=== PATIENT | male | born 1950 ===

== ENCOUNTER 2024-09-08 09:43 | Outpatient (AMB) | payer OTHER, SELFPAY ==
--- NOTE | 2024-09-08 09:44 | MHC.OFFVIS ---
Vital Signs 09/08/24 09:49 Height 5 ft 10 in Weight 161 lb BMI 23.1 BP 158/78 H Blood Pressure Location Lt brachial Position Sitting Pulse 59 Pulse Source Pulse Oximeter Pulse Oximetry (%) 97 Oxygen Delivery Method Room Air Intake Visit Reasons: Shingles Pain JULY 04/13/22 Intake Note: Pain today 12/25 Compensation Associate Required: No Accompanied by: Family/Other Allergies No Known Allergies Allergy (Verified 09/08/24 09:50) HPI Comments Details: Rogerio is back in my office after 3 years of absence. He reported post herpetic neuralgia in July,. Topical medications were offered to the patient. Capsaicin OTC and capsaicin Qutenza were discussed. Unfortunately patient was lost for the follow-up. Now he presents in my office with complains on continuous post herpetic neuralgia. His scar from the previous arriaga are distributed in the projection of approximately right 6th rib, however more precise location could be established under fluoroscopy examination. I offered him diagnostic right 6 rib intercostal injection to establish on whether or not his condition is related to intercostal 6 nerve. Possibility of treating this condition with sprint PNS versus cure on X PNS was briefly discussed with the patient. Prior: very pleasant [place]ian-speaking 71 years old gentleman who presents in my office with complains on post herpetic neuralgia. In July of 2021 he developed shingles. He received medication to treat his shingles. His daughter who is today with him stated that the medication probably was valacyclovir. He did not receive any epidural steroid injections. After the acute vesicle nickie completed the patient complained on continuation of the pain. There is still some rash but not physical or formation in the projection of his right approximately T5-T6 thoracic nerve roots. He tried gabapentin at maximal doses. Gabapentin helped his pain minimally. He tried lidocaine patch which helped his pain minimally. [facility] Medical History (Updated 04/13/22 @ 10:20 by Ciaran Marroquin MD) Lumbago Pure hypercholesterolemia Sleep apnea Postherpetic neuralgia Review of Systems Const All systems reviewed & are unremarkable except as noted in HPI and below ENT Reports Normal hearing present Neuro Reports Normal hearing present, Denies Abnormal speech present, Denies confusion and Denies Sensory deficit (Neuro) Psych Denies confusion Physical Exam Vital Signs: Last Vital Signs Pulse 59 09/08/24 09:49 BP 158/78 H 09/08/24 09:49 Pulse Ox 97 09/08/24 09:49 Oxygen Delivery Method Room Air 09/08/24 09:49 BMI result Body Mass Index 23.1 Const General: no acute distress; No confusion Nutritional Appearance: obese morbidly obese Orientation/consciousness: patient oriented x3 and No confusion Eyes General: appearance normal, both eyes and all related structures Pupils: Equal, round and reactive pupils present EOM: EOMs intact bilaterally Neck Neck: Yes full ROM Chest Chest palpation & inspection: normal inspection of the chest Resp Effort & Inspection: normal respiratory effort, able to speak in complete sentences, normal respiratory pattern, no audible wheezes and no cough Cardio Jugular venous distension: no JVD GI Inspection: Yes normal to inspection Back/Spine/Pelvis Other: On inspection there is a typical post shingles rash in the projection of the right approximately T5-T6 nerve roots. The rash spreads from the back to the flank and the anterior surface of the chest. Neuro General: patient oriented x3, gait normal and No confusion Cranial nerves: Yes CN's II-XII intact bilaterally, Yes Equal, round and reactive pupils present, Yes Normal hearing present and Yes Ability to bilaterally elevate shoulders present Speech: No Abnormal speech present Gait exam (Neuro): Normal gait present Motor exam (neuro): 5/5 motor strength present throughout Sensory Exam: No Sensory deficit (Neuro) Extrem General: No pedal edema Psych Speech and movement: Normal speech and movement present Affect: normal affect Attitude: cooperative Thought process: Normal thought process present Thought content: Normal thought content present Insight: Good insight present (Psych) Judgement: Good judgement present (Psych) Assessment & Plan Assessment & Plan (1) Post herpetic neuralgia: Code(s): B02.29 - Other postherpetic nervous system involvement Category: Medical Plan: The patient is suffering from post herpetic neuralgia . He was lost for the follow-up for 3 years. Now he would like to receive the injections for his condition. I offered him diagnostic intercostal rib 6 injection to establish the source of his pain. Sprint PNS versus cure on X PNS were briefly discussed with the patient. Risks and benefits of the procedure were carefully explained to the patient. The patient had multiple questions. All of them were answered to his satisfaction. Plan I here by testify that I spent 35 minutes in conversation with this patient as well as planning his care and organizing this note. Coding Level of Care Code Est Pt Level 4 (49815) Diagnoses Post herpetic neuralgia B02.29
[2024-09-08 09:49] VITALS: BP 158/78; PULSE 59; O2SAT 97; BMI 23.1
== END 2024-09-08 10:14 | disposition home or self-care (01) ==
LOC: HO.PMC 09:44
PROVIDERS: PCP Pediatrics; Visit Provider Anesthesiology
DX: B02.29 Other postherpetic nervous system involvement (principal)
CPT/HCPCS: 99214

== ENCOUNTER → 2024-09-08 09:43 | Outpatient (BNVA) | payer OTHER, SELFPAY | PROVIDERS: PCP Pediatrics; Visit Provider Anesthesiology ==

== ENCOUNTER 2024-10-28 06:14 | Outpatient (REF) | payer OTHER, SELFPAY ==
--- NOTE | ~2024-10-28 | FL_ITS ---
EXAMINATION: FL GUIDANCE ONLY HISTORY: B02.29 - Other postherpetic nervous system involvement COMPARISON: None available. TECHNIQUE: Fluoroscopy time: 0.4 minutes. Cumulative Dose: 1.23 mGy. DAP: 0.0213 mGym2 Images: 3. FINDINGS: Fluoroscopic spot films of the right chest demonstrate needles and contrast material in the inferior to multiple ribs. FL/FL guidance in treatment room IMPRESSION: Fluoroscopy during procedure. Please see procedure report for additional information. Electronically signed by: Ed Helms MD 10/28/2024 01:10 PM EDT
--- OUTSIDE RECORDS SUMMARY | 2024-10-28 06:17 | XMS_ITS | Clinical Summary ---
Author Organization [address] [facility] Address [address] [place] [address] Phone Care Team Providers Care Asset Protection Detective Name Role Phone Gifty Davis MD Primary Care Provider [phone] Allergies Active Allergy Reactions Criticality Noted Date Comments Gabapentin Medium 06/26/2022 Other Reaction(s): Rash/Dermatitis Medications gabapentin (NEURONTIN) 300 mg capsule Take 1 Capsule by mouth at bedtime. 4 Active triamcinolone (KENALOG) 0.1 % lotion Use topically to affected skin 2x daily for no longer than 2-3 weeks, then only on the weekends. 3 Active metFORMIN XR (GLUCOPHAGE-XR) 500 mg 24 hr tablet Take 2 tablets (1,000 mg total) by mouth 1 (one) time each day. Do not crush, chew, or split. 180 each 1 5 Active rosuvastatin (CRESTOR) 10 mg tablet Take 1 tablet (10 mg total) by mouth 1 (one) time each day. 90 each 1 5 Active omeprazole (PriLOSEC) [address] capsule Take 1 capsule (20 mg total) by mouth 1 (one) time each day. Do not crush or chew. 90 capsule 1 5 07/17/19 26 Active Active Problems Problem Noted Date Diagnosed Date Diabetes (CMS[facility] V24, CMS/[facility] V28) 06/14/2022 Overview (05/09/2024): HgbA1c 7% 05/2022 - Metformin 500mg daily initiated Blood glucose elevated 06/09/2022 Postherpetic neuralgia 08/10/2021 Cough 07/10/2017 Overview (05/09/2024): 07/05- ENT Dr. Urbina Chest pain 02/27/2017 Overview (05/09/2024): 03/04. Referral ETT. Pt refused to sched. Sleep apnea 08/30/2010 Pure hypercholesterolemia 01/01/2007 Lumbago 11/24/2006 Overview (05/09/2024): left sacrum, right sciatica Immunizations Name Administration Dates Next Due Influenza trivalent, 0.5mL (Fluad) 65yo and olde r 07/01/2024 Pneumococcal conjugate 20 va lent (Prevnar 20, PCV 20) 2mo and older 07/01/2024 Pneumococcal polysaccharide 23 valent (Pneumovax 23) 2yo and older 07/27/2022 Td, Unspecified 07/20/2000 Tdap Tetanus diptheria acell ular pertussis (Boostrix; Adacel) 7yo and older 11/30/2011 Zoster recombinant (Shingrix) 19yo and older ,12/05/2022 Surgical History Surgery Date Site/Laterality Comments APPENDECTOMY PROCEDURE: MO APPENDECTOMY NOSE SURGERY PROCEDURE: MO UNLISTED PROCEDURE NOSE COLONOSCOPY 05/20/08 PROCEDURE: MO COLONOSCOPY STOMA DX INCLUDING COLLJ SPEC SPX; COMMENT: Up to cecum, good preparation, normal colon exam Family History Medical History Relation Name Comments Hypertension Uncle 1 Relation Name Status Comments Uncle 1 Uncle 2 Social History Tobacco Use Types Packs/Day Years Used Date Smoking Tobacco: Never Smokeless Tobacco: Never Alcohol Use Standard Drinks/Week Comments Yes 0 (1 standard drink = 0.6 oz pur e alcohol) Sex and Gender Information Value Date Recorded Sex Assigned at Not on file Legal Sex Male 5:02 PM EST Gender Identity Not on file Sexual Orientation Not on file Obstetrics History Last Filed Vital Signs Vital Sign Reading Time Taken Comments Blood Pressure 138/61 07/01/2024 9:47 AM EST Pulse 62 07/01/2024 9:47 AM EST Temperature 36.7 ??C (98.1 ??F) 07/01/2024 9:47 AM ES T Respiratory Rate - - Oxygen Saturation - - Inhaled Oxygen Concentration - - Weight 73.5 kg (162 lb) 07/01/2024 9:47 AM EST Height 177.8 cm (5' 10 ) 07/01/2024 9:47 AM EST Body Mass Index 23.24 07/01/2024 9:47 AM EST Plan of Treatment Upcoming Encounters Date Type Department Care Team (Late st Contact Info) Description 12/31/2024 9:30 AM EDT Office Visit Adult [facility] [address] [place] [address] Gifty Davis MD [address] [place] [address] Health Maintenance Due Date Last Done Comments Diabetes: Annual Retina Eye Exam 1960 RSV Immunization Adult Patients (1 - Risk 60-74 years 1-dose series) 2010 DTaP,Tdap,and Td Vaccines (3 - Td or Tdap) 11/29/2021 11/30/2011, 07/20/2000 Depression Screening 05/17/2022 Falls Risk Assessment 05/17/2022 Hepatitis C Screening 05/17/2022 Social Influencers of Health Screening 05/17/2022 COVID-19 Vaccine ( season) 2024 12/06/2020, 11/08/2020 Diabetes: Blood Sugar Control Test (HGBA1C) 12/21/2024 06/23/2024, 12/19/2023, 12/19/2023 Diabetes: Annual Urine Albumin-Creatinine Ratio (uACR) 06/23/2025 06/23/2024, 12/19/2023 Diabetes: Annual GFR (Glomerular Filtration Rate) 06/23/2025 06/23/2024, 06/09/2022 Diabetes: Annual Foot Exam 07/02/2025 07/02/2024, Cholesterol Screening (Lipid Panel) 06/23/2029 06/23/2024, 12/19/2023, 12/19/2023 Colorectal Cancer Screening: Colonoscopy 05/02/2033 05/02/2023 Zoster Vaccines Completed 02/10/2023, 01/16, 12/05/2022, Additional history exists Influenza Vaccine Completed 07/01/2024 Pneumococcal Vaccine: 50+ Years Completed 07/01/2024, 07/27/2022 HIB Vaccines Aged Out No longer eligi ble based on patient's age to complete this topic HPV Vaccines Aged Out No longer eligi ble based on patient's age to complete this topic Hepatitis A Vaccines Aged Out No long er eligible based on patient's age to complete this topic Hepatitis B Vaccines Aged Out No long er eligible based on patient's age to complete this topic IPV Vaccines Aged Out No longer eligi ble based on patient's age to complete this topic MMR Vaccines Aged Out No longer eligi ble based on patient's age to complete this topic Meningococcal ACWY Vaccine Aged Out N o longer eligible based on patient's age to complete this topic Meningococcal B Vaccine Aged Out No l onger eligible based on patient's age to complete this topic RSV Immunization Patients Under 20 months Aged Out No longer eligible based on patient's age to complete this topic Varicella Vaccines Aged Out No longer eligible based on patient's age to complete this topic Procedures Procedure Name Priority Date/Time Associated Diagnosis Comments MICROALBUMIN CREATININE URINE RATIO Routine 06/23/2024 9:30 AM EST Type 2 diabetes mellitus ([facility]/HCC V24, [facility] V28) COMPREHENSIVE METABOLIC PANEL Routine 06/23/2024 9:30 AM EST Type 2 diabetes mellitus (CMS/HCC V24, [facility] V28) HEMOGLOBIN A1C Routine 06/23/2024 9:30 AM EST Type 2 diabetes mellitus (CMS/HCC V24, CMS/HCC V28) LIPID PANEL WITH REFLEX TO DIRECT LDL Routine 06/23/2024 9:30 AM EST Type 2 diabetes mellitus (CMS/HCC V24, CMS/HCC V28) DIABETES FOOT EXAM Routine 12/27/2023 COLONOSCOPY Routine 05/02/2023 from Last 3 Months or Most Recently Relevant to Health Maintenance Results * (ABNORMAL) Lipid panel with reflex to direct LDL (06/23/2024 9:30 AM EST) Cholesterol 242(H) 0 - 200 mg/dL LAB CHEMISTRY METHOD 06/23/2024 1:35 PM [facility] Triglycerides 79 0 - 150 mg/dL LAB CHEMISTRY METHOD 06/23/2024 1:35 PM [facility] HDL 48 >=40 mg/dL LAB CHEMISTRY METHOD 06/23/2024 1:35 PM [facility] LDL Calculated 178(H) 0 - 100 mg/dL LAB CHEMISTRY METHOD 06/23/2024 1:35 PM [facility] VLDL Cholesterol Gianfranco 15.8 mg/dL LAB CHEMISTRY METHOD 06/23/2024 1:35 PM [facility] Non HDL Chol. (LDL+VLDL) 194(H) <145 mg/dL LAB CHEMISTRY METHOD 06/23/2024 1:35 PM [facility] Chol/HDL Ratio 5.0(H) 0.0 - 4.4 LAB CHEMISTRY METHOD 06/23/2024 1:35 PM [facility] Blood Venous blood specimen / Unknown Venipuncture / Unknown 06/23/2024 9:30 AM EST 06/23/2024 9:30 AM EST C Matias Davis MD LAB BLOOD ORDERABLES Final Res ult [facility] [address] [place] [address], [place] [phone] * Microalbumin creatinine urine ratio (06/23/2024 9:30 AM EST) Creatinine, Urine 231.0 mg/dL LAB CHEMISTRY METHOD 06/23/2024 5:02 PM [facility] Microalb, Ur 16.6 0.0 - 29.0 mg/L LAB CHEMISTRY METHOD 06/23/2024 5:02 PM EST [facility] Microalb/Creat Ratio 7 <30 mg/g creat LAB CHEMISTRY METHOD 06/23/2024 5:02 PM EST [facility] Urine Urine specimen obtained by clean catch procedure / Unknown Non-blood Collection / Unknown 06/23/2024 9:30 AM EST 06/23/2024 9:30 AM EST Gifty Davis MD LAB URINE ORDERABLES Final Res ult Performing Organization Address [facility]/ZIP Co de Phone Number [facility] [address] [place] [address], [place] [phone] * (ABNORMAL) Hemoglobin A1c (06/23/2024 9:30 AM EST) Hemoglobin A1C 7.9(H) <6.5 % LAB CHEMISTRY METHOD 06/23/2024 1:49 PM [facility] Mean Bld Glu Estim. 180 mg/dL LAB CHEMISTRY METHOD 06/23/2024 1:49 PM [facility] Blood Venous blood specimen / Unknown Venipuncture / Unknown 06/23/2024 9:30 AM EST 06/23/2024 9:30 AM EST us Gifty Davis MD LAB BLOOD ORDERABLES Final Res ult Performing Organization Address City/[facility]/ZIP Co de Phone Number [facility] [address] [place] [address], [place] [phone] * (ABNORMAL) Comprehensive metabolic panel (06/23/2024 9:30 AM EST) Sodium 138 133 - 145 mmol/L LAB CHEMISTRY METHOD 06/23/2024 1:43 PM [facility] Potassium 4.1 3.5 - 5.5 mmol/L LAB CHEMISTRY METHOD 06/23/2024 1:43 PM [facility] Chloride 105 96 - 110 mmol/L LAB CHEMISTRY METHOD 06/23/2024 1:43 PM [facility] CO2 27 21 - 32 mmol/L LAB CHEMISTRY METHOD 06/23/2024 1:43 PM [facility] Anion Gap 6 3 - 11 LAB CHEMISTRY METHOD 06/23/2024 1:43 PM [facility] Glucose 172(H) 70 - 100 mg/dL LAB CHEMISTRY METHOD 06/23/2024 1:43 PM [facility] BUN 25 5 - 25 mg/dL LAB CHEMISTRY METHOD 06/23/2024 1:43 PM [facility] Creatinine 1.18 0.70 - 1.30 mg/dL LAB CHEMISTRY METHOD 06/23/2024 1:43 PM [facility] eGFR 65 >=60 mL/min/1. 73m2 LAB CHEMISTRY METHOD 06/23/2024 1:43 PM [facility] Comment:Calculation based on the??Chronic Kidney Disease Epidemiology Collaboration (CKD-EPI) equation refit??without adjustment for race. BUN/Creatinine Ratio 21.2 LAB CHEMISTRY METHOD 06/23/2024 1:43 PM [facility] Calcium 9.3 8.5 - 10.5 mg/dL LAB CHEMISTRY METHOD 06/23/2024 1:43 PM [facility] AST (SGOT) 19 10 - 42 unit/L LAB CHEMISTRY METHOD 06/23/2024 1:43 PM [facility] ALT (SGPT) 27 10 - 60 unit/L LAB CHEMISTRY METHOD 06/23/2024 1:43 PM [facility] Alkaline Phosphatase 74 42 - 121 unit/L LAB CHEMISTRY METHOD 06/23/2024 1:43 PM [facility] Total Protein 7.1 6.0 - 8.0 g/dL LAB CHEMISTRY METHOD 06/23/2024 1:43 PM [facility] Albumin 4.1 3.2 - 5.0 g/dL LAB CHEMISTRY METHOD 06/23/2024 1:43 PM EST [facility] Total Bilirubin 1.5(H) 0.0 - 1.4 mg/dL LAB CHEMISTRY METHOD 06/23/2024 1:43 PM EST [facility] Blood Venous blood specimen / Unknown Venipuncture / Unknown 06/23/2024 9:30 AM EST 06/23/2024 9:30 AM EST Gifty Davis MD LAB BLOOD ORDERABLES Final Res ult [facility] [address] [place] [address], * Diabetes Foot Exam (12/27/2023) Pathologist [facility] Diabetes: Annual Foot Exam abstracted Historical Provider HEALTH MAINTENANCE Final Result * Colonoscopy (05/02/2023) Pathologist [facility] Colonoscopy no interpreta tion,abstr acted Anatomical Region Laterality Modality Other Historical Provider HEALTH MAINTENANCE Final Result from Last 3 Months or Most Recently Relevant to Health Maintenance Insurance MEDICARE [employer] Care Teams Asset Protection Detective Relationship Specialty Start Date End Date Gifty Davis MD [address] [place] [id number] PCP - General 02/04/02
== END 2024-10-28 06:15 | disposition home or self-care (01) ==
LOC: CF 06:14
PROVIDERS: Visit Provider Anesthesiology
DX: B02.29 Other postherpetic nervous system involvement (principal)
CPT/HCPCS: 64420; 64421; J1100; J2003; J2795; Q9967

== ENCOUNTER 2024-10-28 07:53 | Outpatient (AMB) | payer OTHER, SELFPAY ==
--- NOTE | 2024-10-28 07:53 | MHC.OFFVIS ---
Vital Signs 10/28/24 07:57 10/28/24 08:41 Height 5 ft 10 in Weight 161 lb BMI 23.1 BP 138/70 130/72 Blood Pressure Location Lt brachial Lt brachial Position Sitting Sitting Respiration 14 16 Pulse 59 54 Pulse Source Pulse Oximeter Pulse Oximeter Pulse Oximetry (%) 100 100 Oxygen Delivery Method Room Air Room Air Comment Pre-Op Intake Visit Reasons: RIGHT DIAGNOSTIC RIB 6 INTERCOSTAL INJECTION Lodge Sales Associate Required: No Accompanied by: Spouse Allergies No Known Allergies Allergy (Verified 10/28/24 07:57) [facility] Medical History (Updated 04/13/22 @ 10:20 by Ciaran Marroquin MD) Lumbago Pure hypercholesterolemia Sleep apnea Postherpetic neuralgia Physical Exam Vital Signs: Last Vital Signs Pulse 54 10/28/24 08:41 Resp 16 10/28/24 08:41 BP 130/72 10/28/24 08:41 Pulse Ox 100 10/28/24 08:41 Oxygen Delivery Method Room Air 10/28/24 08:41 BMI result Body Mass Index 23.1 Assessment & Plan Assessment & Plan (1) Post herpetic neuralgia: Code(s): B02.29 - Other postherpetic nervous system involvement Category: Medical Plan Rib 5 and rib 6 on the right intercostal diagnostic and therapeutic injection. Informed consent was thoroughly explained to the patient in his [place] language. The patient was taken to the operating room and positioned prone on the operating table. The back of the patient was palpated under fluoroscopy guidance and we determined by the palpation that the most painful ribs projections are rib 5 and rib 6. After that the ChloraPrep was used to prep the area, and the area was draped with self adhesive sterile utility towels. After that mild was performed delineating name and date of of the patient and nature of the procedure as well as patient's allergies. In the projection of the lower margin of the 5th rib to the skin injection of the local anesthetic was performed forming a skin wheal. 22 gauge 3-1/2 inch spinal needle was inserted through the skin wheal and advanced to were the lower margin of the rib. when the tip of the needle contacted the lower margin of the rib it was deviated slightly lateral and immediately after slightly medial and advanced into the sulcus of the rib. Injection of the contrast demonstrated no intravascular and no intrapleural intake. After that injection of the local anesthetic ropivacaine 0.5% 3 cc mixed with Decadron 2 mg was performed in the area. After that procedure was repeated in the same fashion 1 rib below at rib 6. upon completion of the injection the needle was removed sterile Band-Aid was applied. The patient tolerated the procedure well. Orders: Orders FL guidance in treatment room Today B02.29 - Other postherpetic nervous system involvement Coding Level of Care Code Procedure Only Diagnoses Post herpetic neuralgia B02.29
--- OUTSIDE RECORDS SUMMARY | 2024-10-28 07:56 | XMS_ITS | Encounter Summary ---
Author Organization [facility] Address [address] [place] [address] Care Team Providers Care Gear Setter Name Role Phone Shukri Davis MD Primary Care Provider [phone] Reason for Visit * Reason Onset Date Comments Stress Test 02/27/2017 Encounter Details Date Type Department Care Team Description 02/27/2017 Telephone Cardiology - [address] [address] Shukri Davis MD [address] [place], [place] [id number] Stress Test Social History Tobacco Use Types Packs/Day Years Used Date Smoking Tobacco: Never Smokeless Tobacco: Never Alcohol Use Standard Drinks/Week Comments Yes 0 (1 standard drink = 0.6 oz pur e alcohol) occ Sex Assigned at Date Recorded Not on file Job Start Date Occupation Industry Not on file Not on file Not on file documented as of this encounter Miscellaneous Notes * Telephone Encounter - Mary Jo Zachary - 02/27/2017 11:24 AM EDT Rogerio called today he cancelled his appointment for his stress test on 03/01/17. He does not wantto do the the testing. This is an FYI for Dr. Davis who ordered the stress test. At this time we will remove the order for our open scheduling report it can always be booked again if necessary. Thank you Mary Jo in cardiology. documented in this encounter Plan of Treatment Not on file documented as of this encounter Visit Diagnoses Diagnosis Chest pain, unspecified type documented in this encounter Care Teams Gear Setter Relationship Specialty Start Date End Date Shukri Davis MD [address] [place] [id number] PCP - General 02/04/02 documented as of this encounter
--- OUTSIDE RECORDS SUMMARY | 2024-10-28 07:56 | XMS_ITS | Encounter Summary ---
Author Organization [facility] Address [address] [place] [address] Care Team Providers Care Hedge Fund Manager Name Role Phone Shukri Davis MD Primary Care Provider [phone] Reason for Visit * Reason Onset Date Comments REFERRAL 11/16/2021 Encounter Details Date Type Department Care Team Description 11/16/2021 Telephone Adult Medicine - [facility] [address] [place], [place] [phone] Shukri Davis MD [address] [place], [place] [phone] REFERRAL Social History Tobacco Use Types Packs/Day Years Used Date Smoking Tobacco: Never Smokeless Tobacco: Never Alcohol Use Standard Drinks/Week Comments Yes 0 (1 standard drink = 0.6 oz pur e alcohol) occ Sex Assigned at Date Recorded Not on file Job Start Date Occupation Industry Not on file Not on file Not on file COVID-19 Exposure Response Date Recorded In the last 10 days, have yo u been in contact with someone who was confirmed or suspected to have Coronavirus/COVID-19? No / Unsure 11/08/2021 5:08 PM EDT documented as of this encounter Miscellaneous Notes * Telephone Encounter - Petra Arciniega M.A. - 11/17/2021 3:22 PM EDT Spoke to patient Niranjan Who is on VR and message was given below and they stated to meke appt with pcp * Telephone Encounter - Petra Arciniega M.A. - 11/16/2021 11:53 AM EDT Left voicemail to asking call regarding message below. * Telephone Encounter - Bernard Sargent - 11/16/2021 10:43 AM EDT Patient was seen at [address] [place] [address] and was recommended to be seed by Insurance Sales Representative. Urgent Care provider told patient PCP needs to put in the referral. Patient is asking for a call back regarding urgent care visit. Since provider made couple recommendation on medication dose change and couple others but he/she couldn't change anything him/herself. Please review and call documented in this encounter Plan of Treatment Not on file documented as of this encounter Visit Diagnoses Not on filedocumented in this encounter Care Teams Hedge Fund Manager Relationship Specialty Start Date End Date Shukri Davis MD [address] [place] [id number] PCP - General 02/04/02 documented as of this encounter
--- OUTSIDE RECORDS SUMMARY | 2024-10-28 07:56 | XMS_ITS | Encounter Summary ---
Author Organization [facility] Address [address] [place] [address] Care Team Providers Care Tissue Technologist Name Role Phone Shukri Davis MD Primary Care Provider [phone]- [phone] Encounter Details Date Type Department Care Team Description 07/09/2017 Drug Abuse Treatment Specialist Report Medical Records [address] [place] [address] Patti Urbina Social History Tobacco Use Types Packs/Day Years Used Date Smoking Tobacco: Never Smokeless Tobacco: Never Alcohol Use Standard Drinks/Week Comments Yes 0 (1 standard drink = 0.6 oz pur e alcohol) occ Sex Assigned at Date Recorded Not on file Job Start Date Occupation Industry Not on file Not on file Not on file documented as of this encounter Plan of Treatment Not on file documented as of this encounter Visit Diagnoses Not on filedocumented in this encounter Care Teams Tissue Technologist Relationship Specialty Start Date End Date Shukri Davis MD [address] [place], [place] [phone] PCP - General 02/04/02 documented as of this encounter
--- OUTSIDE RECORDS SUMMARY | 2024-10-28 07:56 | XMS_ITS | Encounter Summary ---
Author Organization [facility] Address [address] [place] [address] Care Team Providers Care Strap Machine Operator Name Role Phone Shukri Davis MD Primary Care Provider [phone]- [phone] Reason for Visit * Reason Onset Date Comments Orders Call 07/10/2022 PT Encounter Details Date Type Department Care Team Description 07/10/2022 Telephone Adult Medicine - [place] [address] [place], [place] [phone] Shukri Davis MD [address] [place], [place] [phone] Orders Call (PT) Social History Tobacco Use Types Packs/Day Years Used Date Smoking Tobacco: Never Smokeless Tobacco: Never Alcohol Use Standard Drinks/Week Comments Yes 0 (1 standard drink = 0.6 oz pur e alcohol) Occasional Sex Assigned at Date Recorded Not on file Job Start Date Occupation Industry Not on file Not on file Not on file COVID-19 Exposure Response Date Recorded In the last 10 days, have yo u been in contact with someone who was confirmed or suspected to have Coronavirus/COVID-19? No / Unsure 06/26/2022 10:12 AM EST documented as of this encounter Miscellaneous Notes * Telephone Encounter - Alley Calhoun - 07/10/2022 1:13 PM EST Patient was referred [facility] for : I will request a referral to Physical Therapy. Diagnosis: sciatica Goal of Therapy: Decreased pain Treatment Modalities: Evaluate and treat Frequency of Visits: 1-2 times per week Duration of Therapy: 8 weeks Total Number of Visits: 15 visits Payor: Not third-constitution party related Patient is [facility] [address] [facility] [phone] documented in this encounter Plan of Treatment Not on file documented as of this encounter Visit Diagnoses Not on filedocumented in this encounter Care Teams Strap Machine Operator Relationship Specialty Start Date End Date Shukri Davis MD [address] [place] [address] PCP - General 02/04/02 documented as of this encounter
--- OUTSIDE RECORDS SUMMARY | 2024-10-28 07:56 | XMS_ITS | Encounter Summary ---
Author Organization [facility] Address [address] [place] [address] Care Team Providers Care Claims Representative Name Role Phone Shukri Davis MD Primary Care Provider [phone] Reason for Visit * Reason Onset Date Comments Prior Authorization 08/10/2021 gabapentin ( NEURONTIN) 300 MG capsule Encounter Details Date Type Department Care Team Description 08/10/2021 Telephone Adult Medicine - [address] [address] Miranda Salas MD Prior Authorization (gabapentin (NEURONTIN) 300 MG capsule) Social History Tobacco Use Types Packs/Day Years Used Date Smoking Tobacco: Never Smokeless Tobacco: Never Alcohol Use Standard Drinks/Week Comments Yes 0 (1 standard drink = 0.6 oz pur e alcohol) occ Sex Assigned at Date Recorded Not on file Job Start Date Occupation Industry Not on file Not on file Not on file COVID-19 Exposure Response Date Recorded In the last month, have you been in contact with someone who was confirmed or suspected to have Coronavirus / COVID-19? No / Unsure 07/25/2021 12:29 PM EST documented as of this encounter Miscellaneous Notes * Telephone Encounter - Margarita Deras M.A. - 08/15/2021 8:39 AM EST Gabapentin approved for 1 year Pharmacy notified * Telephone Encounter - Margarita Deras M.A. - 08/11/2021 1:34 PM EST Prior auth done via covermymeds for gabapentin high dose Dx postherpetic neuralgia * Telephone Encounter - Vale Avilez M.A. - 08/11/2021 11:13 AM EST Gabapentin was sent by at the [facility] . Patient has a telehealth appt yesterday, should be addressed by provider who saw patient. * Telephone Encounter - Berkley Thompson - 08/11/2021 11:09 AM EST Pharmacy is stating this medication needs an explanation on why the dose is so high. * Telephone Encounter - Alley Calhoun - 08/10/2021 4:33 PM EST Prior Authorization for Medication-do not complete and send this encounter unless you have the fax from the pharmacy. Is this a Cover My Meds request: Sultan of Medication gabapentin (NEURONTIN) 300 MG capsule Dose of Medication 300MG What is the RX # from the faxed refill? How does patient take this med? Sig - Route: Take 1-2 Capsules by mouth 3 times daily as needed (shingles pain. May take 600 mg (2 tabs) at bedtime.). - Oral What Pharmacy did the fax come from: [facility] fax #: [phone] [employer] Information from fax: What Prescription Plan does the patient have? BIN/PCN if applicable: Cardholder ID:[id number] Person Code: 01 Relationship Code: 1 Help desk phone: documented in this encounter Plan of Treatment Not on file documented as of this encounter Visit Diagnoses Not on filedocumented in this encounter Care Teams Claims Representative Relationship Specialty Start Date End Date Shukri Davis MD [address] [place] [address] PCP - General 02/04/02 documented as of this encounter
--- OUTSIDE RECORDS SUMMARY | 2024-10-28 07:56 | XMS_ITS | Clinical Summary ---
Author Organization [facility] Address [address] [place] [address] Phone Care Team Providers Care Water Main Inspector Name Role Phone Gifty Davis MD Primary Care Provider [phone] Allergies Active Allergy Reactions Criticality Noted Date [...] Problems Problem Noted Date Diagnosed Date Diabetes (CMS/[facility] V24, CMS/[facility]ER[facility] V28) 06/14/2022 Overview (05/09/2024): HgbA1c 7% 05/2022 [...] History Surgery Date Site/Laterality Comments APPENDECTOMY PROCEDURE: ID APPENDECTOMY NOSE SURGERY PROCEDURE: ID UNLISTED PROCEDURE NOSE COLONOSCOPY 05/20/08 PROCEDURE: ID COLONOSCOPY STOMA DX INCLUDING COLLJ SPEC SPX; [...] 9:30 AM EDT Office Visit Adult Medicine [facility] [address] [place] [address] Gifty Davis MD [address] [place] [address] Health Maintenance Due Date Last Done Comments [...] 9:30 AM EST Type 2 diabetes mellitus ([facility]/HCC V24, CMS/[facility]ER[facility] V28) COMPREHENSIVE METABOLIC PANEL Routine 06/23/2024 9:30 AM EST Type 2 diabetes mellitus (CMS/HCC V24, CMS/[facility]ER[facility] V28) HEMOGLOBIN A1C Routine 06/23/2024 9:30 AM [...] mg/dL LAB CHEMISTRY METHOD 06/23/2024 1:35 PM [facility] Triglycerides 79 0 - 150 mg/dL LAB CHEMISTRY METHOD 06/23/2024 1:35 PM [facility] HDL 48 >=40 mg/dL LAB CHEMISTRY METHOD 06/23/2024 1:35 PM [facility] LDL Calculated 178(H) 0 - 100 mg/dL LAB CHEMISTRY METHOD 06/23/2024 1:35 PM [facility] VLDL Cholesterol Gianfranco 15.8 mg/dL LAB CHEMISTRY METHOD 06/23/2024 1:35 PM [facility] Non HDL Chol. (LDL+VLDL) 194(H) <145 mg/dL LAB CHEMISTRY METHOD 06/23/2024 1:35 PM [facility] Chol/HDL Ratio 5.0(H) 0.0 - 4.4 LAB CHEMISTRY METHOD 06/23/2024 1:35 PM [facility] Blood Venous blood specimen / Unknown Venipuncture / Unknown 06/23/2024 9:30 AM EST 06/23/2024 9:30 AM EST C Matias Davis MD LAB BLOOD ORDERABLES Final Res ult [facility] [address] [place] [address], [place] [phone] * Microalbumin creatinine urine ratio (06/23/2024 9:30 AM EST) Creatinine, Urine 231.0 mg/dL LAB CHEMISTRY METHOD 06/23/2024 5:02 PM [facility] Microalb, Ur 16.6 0.0 - 29.0 mg/L LAB CHEMISTRY METHOD 06/23/2024 5:02 PM EST [facility] Microalb/Creat Ratio 7 <30 mg/g creat LAB CHEMISTRY METHOD 06/23/2024 5:02 PM EST [facility] Urine Urine specimen obtained by clean catch procedure / Unknown Non-blood Collection / Unknown 06/23/2024 9:30 AM EST 06/23/2024 9:30 AM EST Gifty Davis MD LAB URINE ORDERABLES Final Res ult Performing Organization Address [facility]/ZIP Co de Phone Number [facility] [address] [place] [address], [place] [phone] * (ABNORMAL) Hemoglobin A1c (06/23/2024 9:30 AM EST) Hemoglobin A1C 7.9(H) <6.5 % LAB CHEMISTRY METHOD 06/23/2024 1:49 PM [facility] Mean Bld Glu Estim. 180 mg/dL LAB CHEMISTRY METHOD 06/23/2024 1:49 PM [facility] Blood Venous blood specimen / Unknown Venipuncture / Unknown 06/23/2024 9:30 AM EST 06/23/2024 9:30 AM EST us Gifty Davis MD LAB BLOOD ORDERABLES Final Res ult Performing Organization Address City/[facility]/ZIP Co de Phone Number [facility] [address] [place] [address], [place] [phone] * (ABNORMAL) Comprehensive metabolic panel (06/23/2024 9:30 AM EST) Sodium 138 133 - 145 mmol/L LAB CHEMISTRY METHOD 06/23/2024 1:43 PM [facility] Potassium 4.1 3.5 - 5.5 mmol/L LAB CHEMISTRY METHOD 06/23/2024 1:43 PM [facility] Chloride 105 96 - 110 mmol/L LAB CHEMISTRY METHOD 06/23/2024 1:43 PM [facility] CO2 27 21 - 32 mmol/L LAB CHEMISTRY METHOD 06/23/2024 1:43 PM [facility] Anion Gap 6 3 - 11 LAB CHEMISTRY METHOD 06/23/2024 1:43 PM [facility] Glucose 172(H) 70 - 100 mg/dL LAB CHEMISTRY METHOD 06/23/2024 1:43 PM [facility] BUN 25 5 - 25 mg/dL LAB CHEMISTRY METHOD 06/23/2024 1:43 PM [facility] Creatinine 1.18 0.70 - 1.30 mg/dL LAB CHEMISTRY METHOD 06/23/2024 1:43 PM [facility] eGFR 65 >=60 mL/min/1. 73m2 LAB CHEMISTRY METHOD 06/23/2024 1:43 PM [facility] Comment:Calculation based on the??Chronic Kidney Disease Epidemiology Collaboration (CKD-EPI) equation refit??without adjustment for race. BUN/Creatinine Ratio 21.2 LAB CHEMISTRY METHOD 06/23/2024 1:43 PM [facility] Calcium 9.3 8.5 - 10.5 mg/dL LAB CHEMISTRY METHOD 06/23/2024 1:43 PM [facility] AST (SGOT) 19 10 - 42 unit/L LAB CHEMISTRY METHOD 06/23/2024 1:43 PM [facility] ALT (SGPT) 27 10 - 60 unit/L LAB CHEMISTRY METHOD 06/23/2024 1:43 PM [facility] Alkaline Phosphatase 74 42 - 121 unit/L LAB CHEMISTRY METHOD 06/23/2024 1:43 PM [facility] Total Protein 7.1 6.0 - 8.0 g/dL LAB CHEMISTRY METHOD 06/23/2024 1:43 PM [facility] Albumin 4.1 3.2 - 5.0 g/dL LAB CHEMISTRY METHOD 06/23/2024 1:43 PM EST [facility] Total Bilirubin 1.5(H) 0.0 - 1.4 mg/dL LAB CHEMISTRY METHOD 06/23/2024 1:43 PM EST [facility] Blood Venous blood specimen / Unknown Venipuncture / Unknown 06/23/2024 9:30 AM EST 06/23/2024 9:30 AM EST Gifty Davis MD LAB BLOOD ORDERABLES Final Res ult [facility] [address] [place] [address], * Diabetes Foot Exam (12/27/2023) Pathologist [facility] Diabetes: Annual Foot Exam abstracted Historical Provider HEALTH MAINTENANCE Final Result * Colonoscopy (05/02/2023) Pathologist [facility] Colonoscopy no interpreta tion,abstr acted Anatomical Region Laterality Modality Other Historical Provider HEALTH MAINTENANCE Final Result from Last 3 Months or Most Recently Relevant to Health Maintenance Insurance MEDICARE [employer] Care Teams Water Main Inspector Relationship Specialty Start Date End Date Gifty Davis MD [address] [place] [address] PCP - General 02/04/02
--- OUTSIDE RECORDS SUMMARY | 2024-10-28 07:56 | XMS_ITS | Clinical Summary ---
Author Organization [facility] Address [address] [place] [address] Care Team Providers Care Mental Health Nurse Practitioner Name Role Phone Shukri Davis MD Primary Care Provider Allergies Active Allergy Reactions Severity Noted Date Comments Gabapentin Rash/Dermatitis Medium 06/26/2022 Medications Medication Sig Dispensed Refills Start Date End Date Status triamcinolone (KENALOG) 0.1 % lotion Use topically to affected skin 2x daily for no longer than 2-3 weeks, then only on the weekends. 50 mL 2 06/26/2022 Active metformin (GLUCOPHAGE-XR) 500 MG 24 hr tablet Take 1 tablet daily with breakfast 90 Tablet 1 07/03/2023 Active rosuvastatin (CRESTOR) 10 MG tablet Take 1 Tablet by mouth daily for 180 days. 90 Tablet 1 07/03/2023 Active gabapentin (NEURONTIN) 300 MG capsule Take 1 Capsule by mouth at bedtime. 30 Capsule 1 12/27/2023 Active Active Problems Problem Noted Date Diabetes 06/14/2022 Overview: HgbA1c 7% 05/2022 - Metformin 500mg daily initiated Blood glucose elevated 06/09/2022 Postherpetic neuralgia 08/10/2021 Cough 07/10/2017 Overview: 07/05- ENT Dr. Busekroos Chest pain 02/27/2017 Overview: 03/04. Referral ETT. Pt refused to sched. Sleep apnea, AHI 69, severe 08/30/2010 Pure hypercholesterolemia 01/01/2007 Special screening for malignant neoplasm s, colon 01/01/2007 Overview: Colonoscopy neg 05/25--10yrs 05/10. 10 yrs Lumbago 11/24/2006 Overview: left sacrum, right sciatica Immunizations Name Administration Dates Next Due Pneumoccoccal(Adult) Polysaccharide PPSV23 07/27 Shingrix (Patient reported) 02/10/2023, TETANUS/DIPTHERIA (ADULT) 07/20/2000 Tdap 11/30/2011 Family History Medical History Relation Name Comments Hypertension Uncle 2 Relation Name Status Comments Uncle 1 Uncle 2 Social History Tobacco Use Types Packs/Day Years Used Date Smoking Tobacco: Never Smokeless Tobacco: Never Tobacco Cessation:Counseling Given: Not Answered Alcohol Use Standard Drinks/Week Comments Yes 0 (1 standard drink = 0.6 oz pur e alcohol) Occasional Sex Assigned at Date Recorded Not on file Job Start Date Occupation Industry Not on file Not on file Not on file Last Filed Vital Signs Vital Sign Reading Time Taken Comments Blood Pressure 134/69 12/27/2023 11:26 AM EDT Pulse 62 12/27/2023 11:26 AM EDT Temperature 36 ??C (96.8 ??F) 12/27/2023 11: 26 AM EDT Respiratory Rate 16 12/27/2023 11:2 6 AM EDT Oxygen Saturation 96% 11/08/2021 5:19 PM EDT Inhaled Oxygen Concentration - - Weight 70.2 kg (154 lb 12.8 oz) 024 11:26 AM EDT Height 177.8 cm (5' 10 ) 12/27/2023 11: 26 AM EDT Body Mass Index 22.21 12/27/2023 11:26 AM EDT Plan of Treatment Health Maintenance Due Date Last Done Comments Covid-19 Vaccine (#1) 1950 DIABETES: ANNUAL EYE EXAM 1968 HEPATITIS C SCREENING 1968 DTAP/TDAP/TD (2 - Td or Tdap) 11/29/2021 11/30/2011 PNEUMOCOCCAL VACCINE (2 - PCV) 07/27/2023 07/27/2022 DIABETES: BLOOD SUGAR CONTRO L TEST (HGBA1C) 03/20/2024 12/19/2023, 06/26/2023, 02/05/2023, Additional history exists DIABETES/HEART DISEASE: GARIMA AL CHOLESTEROL (LDL) 12/18/2024 12/19/2023, 06/26/2023, 11/10/2022, Additional history exists DIABETES: ANNUAL URINE PROTE IN TEST (MICROALBUMIN) 12/18/2024 12/19/2023, 06/26/2022 DIABETES: ANNUAL FOOT EXAM 12/26/202412/26, 07/03/2023, 07/27/2022, Additional history exists INFLUENZA (Season Ended) 2025 018 (Refused), 05/29/2016 (Refused) COLON CANCER SCREENING 05/02/2033 05/02/2023, 2007 SHINGLES VACCINE Completed 02/10/2023, 12/05/2022 Care Teams Mental Health Nurse Practitioner Relationship Specialty Start Date End Date Shukri Davis MD [address] [place] [address] PCP - General 02/04/02
--- OUTSIDE RECORDS SUMMARY | 2024-10-28 07:56 | XMS_ITS | Encounter Summary ---
Author Organization [facility] Address [address] [place] [address] Care Team Providers Care Solar Resource Assessor Name Role Phone Shukri Davis MD Primary Care Provider +1- [phone] Encounter Details Date Type Department Care Team Description 02/09/2012 Clearing Inspector Report Medical Records [address] [place] [address] Figueroa Burk Social History Tobacco Use Types Packs/Day Years [...] on filedocumented in this encounter Care Teams Solar Resource Assessor Relationship Specialty Start Date End Date Shukri Davis MD [address] [place] [address] PCP - General 02/04/02 documented as of this encounter
--- OUTSIDE RECORDS SUMMARY | 2024-10-28 07:56 | XMS_ITS | Encounter Summary ---
Author Organization [facility] Address [address] [place] [address] Care Team Providers Care School Curriculum Developer Name Role Phone Shukri Davis MD Primary Care Provider [phone]- [phone] Encounter Details Date Type Department Care Team Description 09/07/2022 Border Patrol Officer Report Medical Records [address] [place] [address] Enrique Barboza MD Social History Tobacco Use Types Packs/Day Years [...] on filedocumented in this encounter Care Teams School Curriculum Developer Relationship Specialty Start Date End Date Shukri Davis MD [address] [place], [place] [phone] PCP - General 02/04/02 documented as of this encounter
--- OUTSIDE RECORDS SUMMARY | 2024-10-28 07:56 | XMS_ITS | Encounter Summary ---
Author Organization [facility] Address [address] [place] [address] Care Team Providers Care Sow Farm Manager Name Role Phone Shukri Davis MD Primary Care Provider +1- [phone] Reason for Visit * Reason Onset Date Comments Medication 04/18/2023 Encounter Details Date Type Department Care Team Description 04/18/2023 Refill Gastroenterology - [place] [address] [facility] [address] [place] [phone] Charli Cardozo MD [address] [facility] [address] [place] [address] Medication Social History Tobacco Use Types Packs/Day Years [...] on filedocumented in this encounter Care Teams Sow Farm Manager Relationship Specialty Start Date End Date Shukri Davis MD [address] [place] [address] PCP - General 02/04/02 documented as of this encounter
--- OUTSIDE RECORDS SUMMARY | 2024-10-28 07:56 | XMS_ITS | Encounter Summary ---
Author Organization [facility] Address [address] [place] [address] Care Team Providers Care Hotel Casino Floorperson Name Role Phone Shukri Davis MD Primary Care Provider +1- [phone] Encounter Details Date Type Department Care Team Description 05/21/2023 Matching Machine Operator Report Medical Records [address] [place] [address] Enrique Barboza MD Social History Tobacco Use [...] on filedocumented in this encounter Care Teams Hotel Casino Floorperson Relationship Specialty Start Date End Date Shukri Davis MD [address] [place], [place] [phone] PCP - General 02/04/02 documented as of this encounter
--- OUTSIDE RECORDS SUMMARY | 2024-10-28 07:56 | XMS_ITS | Encounter Summary ---
Author Organization [facility] Address [address] [place] [address] Care Team Providers Care Volunteer Services Coordinator Name Role Phone Shukri Davis MD Primary Care Provider +1- [phone] Encounter Details Date Type Department Care Team Description 06/06/2023 Orders Only Medical Records [address] [place] [address] Enrique Barboza MD Social History Tobacco Use [...] on file documented as of this encounter Procedures Procedure Name Priority Date/Time Associated Diagnosis Comments OUTSIDE PLAIN FILM Routine 05/21/2023 documented in this encounter Results * OUTSIDE PLAIN FILM (05/21/2023) Enrique Barboza MD RADIOLOGY documented in this encounter Visit Diagnoses Not on filedocumented in this encounter Care Teams Volunteer Services Coordinator Relationship Specialty Start Date End Date Shukri Davis MD [address] [place] [address] PCP - General 02/04/02 documented as of this encounter
--- OUTSIDE RECORDS SUMMARY | 2024-10-28 07:56 | XMS_ITS | Encounter Summary ---
Author Organization [facility] Address [address] [place] [address] Care Team Providers Care Sleep Lab Technologist Name Role Phone Shukri Davis MD Primary Care Provider [phone]- [phone] Encounter Details Date Type Department Care Team Description 07/26/2016 Laboratory Mechanical Technician Report Medical Records [address] [place] [address] Patti Urbina Social History Tobacco Use Types [...] on filedocumented in this encounter Care Teams Sleep Lab Technologist Relationship Specialty Start Date End Date Shukri Davis MD [address] [place], [place] [phone] PCP - General 02/04/02 documented as of this encounter
[2024-10-28 07:57] VITALS: BP 138/70; PULSE 59; RESP 14; O2SAT 100; BMI 23.1
[2024-10-28 08:41] VITALS: BP 130/72; PULSE 54; RESP 16; O2SAT 100
== END 2024-10-28 08:41 | disposition home or self-care (01) ==
LOC: HO.PMCPRC 07:53
PROVIDERS: PCP Pediatrics; Visit Provider Anesthesiology
DX: B02.29 Other postherpetic nervous system involvement (principal)
CPT/HCPCS: 64420; 64421; 77002

== ENCOUNTER 2024-10-30 09:50 | Outpatient (AMB) | payer OTHER, SELFPAY ==
--- NOTE | 2024-10-30 09:54 | A.OFFVIS_ITS ---
Vital Signs 10/30/24 09:57 Height 5 ft 10 in Weight 161 lb BMI 23.1 BP 132/63 Blood Pressure Location Rt brachial Position Sitting Pulse 61 Pulse Source Pulse Oximeter Pulse Oximetry (%) 98 Oxygen Delivery Method Room Air Intake Visit Reasons: RIGHT DIAGNOSTIC RIB 6 INTERCOSTAL INJECTION Intake Note: Pain today 2.5/10 Monogram Operator Required: No Accompanied by: Self / Same As Patient Allergies No Known Allergies Allergy (Verified 10/30/24 09:57) HPI Comments Details: Rogerio is in my office today after diagnostic and therapeutic intercostal rib 5 and rib 6 local anesthetic and steroid injection. He reports no pain change immediately after the procedure. The injectate was containing small amount of Decadron. However today the patient reports that his pain is starting to get better. I discussed neuromodulation with the patient in case his pain will not be improved. We decided that I will schedule an appointment with him in 1 month and we will discuss level of his pain, neuromodulation, other modalities of treatment. post herpetic neuralgia in July,. Topical medications were offered to the patient. Capsaicin OTC and capsaicin Qutenza were discussed. Unfortunately patient was lost for the follow-up. Prior: very pleasant Singaporean-speaking 71 years old gentleman who presents in my office with complains on post herpetic neuralgia. In July of 2021 he developed shingles. He received medication to treat his shingles. His daughter who is today with him stated that the medication probably was valacyclovir. He did not receive any epidural steroid injections. After the acute vesicle nickie completed the patient complained on continuation of the pain. There is still some rash but not physical or formation in the projection of his right approximately T5-T6 thoracic nerve roots. He tried gabapentin at maximal doses. Gabapentin helped his pain minimally. He tried lidocaine patch which helped his pain minimally. COUNTS INCLUDE 234 BEDS AT THE [facility] Medical History (Updated 04/13/22 @ 10:20 by Ciaran Marroquin MD) Lumbago Pure hypercholesterolemia Sleep apnea Postherpetic neuralgia Review of Systems Const All systems reviewed & are unremarkable except as noted in HPI and below ENT Reports Normal hearing present Neuro Reports Normal hearing present, Denies Abnormal speech present, Denies confusion and Denies Sensory deficit (Neuro) Psych Denies confusion Physical Exam Vital Signs: Last Vital Signs Pulse 61 10/30/24 09:57 BP 132/63 10/30/24 09:57 Pulse Ox 98 10/30/24 09:57 Oxygen Delivery Method Room Air 10/30/24 09:57 BMI result Body Mass Index 23.1 Const General: no acute distress; No confusion Nutritional Appearance: obese morbidly obese Orientation/consciousness: patient oriented x3 and No confusion Eyes General: appearance normal, both eyes and all related structures Pupils: Equal, round and reactive pupils present EOM: EOMs intact bilaterally Neck Neck: Yes full ROM Chest Chest palpation & inspection: normal inspection of the chest Resp Effort & Inspection: normal respiratory effort, able to speak in complete sentences, normal respiratory pattern, no audible wheezes and no cough Cardio Jugular venous distension: no JVD GI Inspection: Yes normal to inspection Back/Spine/Pelvis Other: On inspection there is a typical post shingles rash in the projection of the right approximately T5-T6 nerve roots. The rash spreads from the back to the flank and the anterior surface of the chest. Neuro General: patient oriented x3, gait normal and No confusion Cranial nerves: Yes CN's II-XII intact bilaterally, Yes Equal, round and reactive pupils present, Yes Normal hearing present and Yes Ability to bilaterally elevate shoulders present Speech: No Abnormal speech present Gait exam (Neuro): Normal gait present Motor exam (neuro): 5/5 motor strength present throughout Sensory Exam: No Sensory deficit (Neuro) Extrem General: No pedal edema Psych Speech and movement: Normal speech and movement present Affect: normal affect Attitude: cooperative Thought process: Normal thought process present Thought content: Normal thought content present Insight: Good insight present (Psych) Judgement: Good judgement present (Psych) Assessment & Plan Assessment & Plan (1) Post herpetic neuralgia: Code(s): B02.29 - Other postherpetic nervous system involvement Category: Medical Plan: The patient is suffering from post herpetic neuralgia . He was lost for the follow-up for 3 years. After that he came back and we performed diagnostic and therapeutic rib 5 and rib 6 on the right intercostal injection. He reports no immediate changes in the pain after the procedure however now he reports pain improvement. I will see the patient in 1 month. We discuss neuromodulation. I counseled the patient for the lifestyle changes which could help his pain. Coding Level of Care Code Est Pt Level 3 (16126) Diagnoses Post herpetic neuralgia B02.29
[2024-10-30 09:57] VITALS: BP 132/63; PULSE 61; O2SAT 98; BMI 23.1
--- OUTSIDE RECORDS SUMMARY | 2024-10-30 10:43 | XMS_ITS | Clinical Summary ---
Author Organization [address] [facility] Address [address] [place] [address] Phone Care Team Providers Care Food Safety Officer Name Role Phone Gifty Davis MD Primary Care Provider Allergies Active Allergy Reactions Criticality Noted Date [...] Problem Noted Date Diagnosed Date Diabetes ([facility] V24, [facility] V28) 06/14/2022 Overview (05/09/2024): HgbA1c 7% 05/2022 [...] History Surgery Date Site/Laterality Comments APPENDECTOMY PROCEDURE: [facility] APPENDECTOMY NOSE SURGERY PROCEDURE: [facility] UNLISTED PROCEDURE NOSE COLONOSCOPY 05/20/08 PROCEDURE: [facility] COLONOSCOPY STOMA DX INCLUDING COLLJ SPEC SPX; [...] 9:30 AM EDT Office Visit Adult Medicine [facility] [address] [place] [address] Gifty Davis MD [address] [place] [address] Health Maintenance Due Date Last Done Comments [...] 9:30 AM EST Type 2 diabetes mellitus ([facility]/HCC V24, [facility] V28) COMPREHENSIVE METABOLIC PANEL Routine 06/23/2024 9:30 AM EST Type 2 diabetes mellitus (CMS/HCC V24, [facility] V28) HEMOGLOBIN A1C Routine 06/23/2024 9:30 AM [...] mg/dL LAB CHEMISTRY METHOD 06/23/2024 1:35 PM [facility] Triglycerides 79 0 - 150 mg/dL LAB CHEMISTRY METHOD 06/23/2024 1:35 PM [facility] HDL 48 >=40 mg/dL LAB CHEMISTRY METHOD 06/23/2024 1:35 PM [facility] LDL Calculated 178(H) 0 - 100 mg/dL LAB CHEMISTRY METHOD 06/23/2024 1:35 PM [facility] VLDL Cholesterol Gianfranco 15.8 mg/dL LAB CHEMISTRY METHOD 06/23/2024 1:35 PM [facility] Non HDL Chol. (LDL+VLDL) 194(H) <145 mg/dL LAB CHEMISTRY METHOD 06/23/2024 1:35 PM [facility] Chol/HDL Ratio 5.0(H) 0.0 - 4.4 LAB CHEMISTRY METHOD 06/23/2024 1:35 PM [facility] Blood Venous blood specimen / Unknown Venipuncture / Unknown 06/23/2024 9:30 AM EST 06/23/2024 9:30 AM EST C Matias Davis MD LAB BLOOD ORDERABLES Final Res ult [facility] [address] [place] [address], [place] [phone] * Microalbumin creatinine urine ratio (06/23/2024 9:30 AM EST) Creatinine, Urine 231.0 mg/dL LAB CHEMISTRY METHOD 06/23/2024 5:02 PM [facility] Microalb, Ur 16.6 0.0 - 29.0 mg/L LAB CHEMISTRY METHOD 06/23/2024 5:02 PM EST [facility] Microalb/Creat Ratio 7 <30 mg/g creat LAB CHEMISTRY METHOD 06/23/2024 5:02 PM EST [facility] Urine Urine specimen obtained by clean catch procedure / Unknown Non-blood Collection / Unknown 06/23/2024 9:30 AM EST 06/23/2024 9:30 AM EST Gifty Davis MD LAB URINE ORDERABLES Final Res ult Performing Organization Address [facility]/ZIP Co de Phone Number [facility] [address] [place] [address], [place] [phone] * (ABNORMAL) Hemoglobin A1c (06/23/2024 9:30 AM EST) Hemoglobin A1C 7.9(H) <6.5 % LAB CHEMISTRY METHOD 06/23/2024 1:49 PM [facility] Mean Bld Glu Estim. 180 mg/dL LAB CHEMISTRY METHOD 06/23/2024 1:49 PM [facility] Blood Venous blood specimen / Unknown Venipuncture / Unknown 06/23/2024 9:30 AM EST 06/23/2024 9:30 AM EST us Gifty Davis MD LAB BLOOD ORDERABLES Final Res ult Performing Organization Address City/[facility]/ZIP Co de Phone Number [facility] [address] [place] [address], [place] [phone] * (ABNORMAL) Comprehensive metabolic panel (06/23/2024 9:30 AM EST) Sodium 138 133 - 145 mmol/L LAB CHEMISTRY METHOD 06/23/2024 1:43 PM [facility] Potassium 4.1 3.5 - 5.5 mmol/L LAB CHEMISTRY METHOD 06/23/2024 1:43 PM [facility] Chloride 105 96 - 110 mmol/L LAB CHEMISTRY METHOD 06/23/2024 1:43 PM [facility] CO2 27 21 - 32 mmol/L LAB CHEMISTRY METHOD 06/23/2024 1:43 PM [facility] Anion Gap 6 3 - 11 LAB CHEMISTRY METHOD 06/23/2024 1:43 PM [facility] Glucose 172(H) 70 - 100 mg/dL LAB CHEMISTRY METHOD 06/23/2024 1:43 PM [facility] BUN 25 5 - 25 mg/dL LAB CHEMISTRY METHOD 06/23/2024 1:43 PM [facility] Creatinine 1.18 0.70 - 1.30 mg/dL LAB CHEMISTRY METHOD 06/23/2024 1:43 PM [facility] eGFR 65 >=60 mL/min/1. 73m2 LAB CHEMISTRY METHOD 06/23/2024 1:43 PM [facility] Comment:Calculation based on the??Chronic Kidney Disease Epidemiology Collaboration (CKD-EPI) equation refit??without adjustment for race. BUN/Creatinine Ratio 21.2 LAB CHEMISTRY METHOD 06/23/2024 1:43 PM [facility] Calcium 9.3 8.5 - 10.5 mg/dL LAB CHEMISTRY METHOD 06/23/2024 1:43 PM [facility] AST (SGOT) 19 10 - 42 unit/L LAB CHEMISTRY METHOD 06/23/2024 1:43 PM [facility] ALT (SGPT) 27 10 - 60 unit/L LAB CHEMISTRY METHOD 06/23/2024 1:43 PM [facility] Alkaline Phosphatase 74 42 - 121 unit/L LAB CHEMISTRY METHOD 06/23/2024 1:43 PM [facility] Total Protein 7.1 6.0 - 8.0 g/dL LAB CHEMISTRY METHOD 06/23/2024 1:43 PM [facility] Albumin 4.1 3.2 - 5.0 g/dL LAB CHEMISTRY METHOD 06/23/2024 1:43 PM EST [facility] Total Bilirubin 1.5(H) 0.0 - 1.4 mg/dL LAB CHEMISTRY METHOD 06/23/2024 1:43 PM EST [facility] Blood Venous blood specimen / Unknown Venipuncture / Unknown 06/23/2024 9:30 AM EST 06/23/2024 9:30 AM EST Gifty Davis MD LAB BLOOD ORDERABLES Final Res ult [facility] [address] [place] [address], * Diabetes Foot Exam (12/27/2023) Pathologist [facility] Diabetes: Annual Foot Exam abstracted Historical Provider HEALTH MAINTENANCE Final Result * Colonoscopy (05/02/2023) Pathologist [facility] Colonoscopy no interpreta tion,abstr acted Anatomical Region Laterality Modality Other Historical Provider HEALTH MAINTENANCE Final Result from Last 3 Months or Most Recently Relevant to Health Maintenance Insurance MEDICARE [employer] Care Teams Food Safety Officer Relationship Specialty Start Date End Date Gifty Davis MD [address] [place] [id number] PCP - General 02/04/02
== END 2024-10-30 10:19 | disposition home or self-care (01) ==
LOC: HO.PMC 09:51
PROVIDERS: PCP Pediatrics; Visit Provider Anesthesiology
DX: B02.29 Other postherpetic nervous system involvement (principal)
CPT/HCPCS: 99213

== ENCOUNTER 2024-12-04 09:55 | Outpatient (AMB) | payer OTHER, SELFPAY ==
--- NOTE | 2024-12-04 10:10 | MHC.OFFVIS ---
Vital Signs 12/04/24 10:13 Height 5 ft 10 in Weight 156 lb BMI 22.4 BP 129/71 Blood Pressure Location Lt brachial Position Sitting Pulse 63 Pulse Source Pulse Oximeter Pulse Oximetry (%) 100 Oxygen Delivery Method Room Air Intake Visit Reasons: 1 Month Follow Up Stationary Engineer Supervisor Required: No Allergies No Known Allergies Allergy (Verified 12/04/24 10:10) HPI Comments Details: Rogerio is in my office today for the follow-up and discussion of the treatment. Unfortunately intercostal injections were not working for the patient. He presented today in his office and he had his daughter on the telephone during the conversation. I offered today for him trial of spinal cord stimulator treat his pain. Patient is not very eager to go for the trial of spinal cord stimulator, however he wants to try Cymbalta for pain control. 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 He had diagnostic and therapeutic intercostal rib 5 and rib 6 local anesthetic and steroid injection. He reports no pain change immediately after the procedure. The injectate was containing small amount of Decadron. I will start him on Cymbalta was possible escalation of the medication if there is no side effects. Prior: very pleasant Trinidadian-speaking 71 years old gentleman who presents in my office with complains on post herpetic neuralgia. In July of 2021 he developed shingles. He received medication to treat his shingles. His daughter who is today with him stated that the medication probably was valacyclovir. He did not receive any epidural steroid injections. After the acute vesicle nickie completed the patient complained on continuation of the pain. There is still some rash but not physical or formation in the projection of his right approximately T5-T6 thoracic nerve roots. He tried gabapentin at maximal doses. Gabapentin helped his pain minimally. He tried lidocaine patch which helped his pain minimally. [facility] Medical History (Updated 04/13/22 @ 10:20 by Ciaran Marroquin MD) Lumbago Pure hypercholesterolemia Sleep apnea Postherpetic neuralgia Review of Systems Const All systems reviewed & are unremarkable except as noted in HPI and below ENT Reports Normal hearing present Neuro Reports Normal hearing present, Denies Abnormal speech present, Denies confusion and Denies Sensory deficit (Neuro) Psych Denies confusion Physical Exam Vital Signs: Last Vital Signs Pulse 63 12/04/24 10:13 BP 129/71 12/04/24 10:13 Pulse Ox 100 12/04/24 10:13 Oxygen Delivery Method Room Air 12/04/24 10:13 BMI result Body Mass Index 22.4 Const General: no acute distress; No confusion Nutritional Appearance: obese morbidly obese Orientation/consciousness: patient oriented x3 and No confusion Eyes General: appearance normal, both eyes and all related structures Pupils: Equal, round and reactive pupils present EOM: EOMs intact bilaterally Neck Neck: Yes full ROM Chest Chest palpation & inspection: normal inspection of the chest Resp Effort & Inspection: normal respiratory effort, able to speak in complete sentences, normal respiratory pattern, no audible wheezes and no cough Cardio Jugular venous distension: no JVD GI Inspection: Yes normal to inspection Back/Spine/Pelvis Other: On inspection there is a typical post shingles rash in the projection of the right approximately T5-T6 nerve roots. The rash spreads from the back to the flank and the anterior surface of the chest. Neuro General: patient oriented x3, gait normal and No confusion Cranial nerves: Yes CN's II-XII intact bilaterally, Yes Equal, round and reactive pupils present, Yes Normal hearing present and Yes Ability to bilaterally elevate shoulders present Speech: No Abnormal speech present Gait exam (Neuro): Normal gait present Motor exam (neuro): 5/5 motor strength present throughout Sensory Exam: No Sensory deficit (Neuro) Extrem General: No pedal edema Psych Speech and movement: Normal speech and movement present Affect: normal affect Attitude: cooperative Thought process: Normal thought process present Thought content: Normal thought content present Insight: Good insight present (Psych) Judgement: Good judgement present (Psych) Assessment & Plan Assessment & Plan (1) Post herpetic neuralgia: Code(s): B02.29 - Other postherpetic nervous system involvement Category: Medical Plan: The patient is suffering from post herpetic neuralgia . He was lost for the follow-up for 3 years. After that he came back and we performed diagnostic and therapeutic rib 5 and rib 6 on the right intercostal injection. He reported no improvement after this procedure. SCS was offered to the patient. Unfortunately patient declined. He wanted to try Cymbalta. I will start him on smaller doses. I will see how Cymbalta works and I will see him in about 6 weeks from now. Medications: New duloxetine 20 mg PO BID 60 caps 1RF 30 days B02.29 - Other postherpetic nervous system involvement Patient Instructions: I here by testify that I spent 45 minutes in conversation with this patient as well as planning his care and organizing this note. Coding Level of Care Code Est Pt Level 5 (16194) Diagnoses Post herpetic neuralgia B02.29
[2024-12-04 10:13] VITALS: BP 129/71; PULSE 63; O2SAT 100; BMI 22.4
--- OUTSIDE RECORDS SUMMARY | 2024-12-04 11:01 | XMS_ITS | Encounter Summary ---
Author Organization [facility] Address [address] [place] [address] Care Team Providers Care Primary Care Sales Representative Name Role Phone Shukri Davis MD Primary Care Provider [phone] Reason for Visit * Reason Onset Date Comments REFERRAL 11/16/2021 Encounter Details Date Type Department Care Team Description 11/16/2021 Telephone Adult Medicine - [place] [address], [place] [id number] Shukri Davis MD [address], [place] [phone] REFERRAL Social History Tobacco Use Types Packs/Day [...] 10:43 AM EDT Patient was seen at [address] [place] [address] and was recommended to be seed by Maintenance Porter. Urgent Care provider told patient PCP needs [...] on filedocumented in this encounter Care Teams Primary Care Sales Representative Relationship Specialty Start Date End Date Shukri Davis MD [address] [place] [id number] PCP - General 02/04/02 documented as of this encounter
== END 2024-12-04 10:59 | disposition home or self-care (01) ==
LOC: HO.PMC 09:56
PROVIDERS: PCP Pediatrics; Visit Provider Anesthesiology
DX: B02.29 Other postherpetic nervous system involvement (principal)
CPT/HCPCS: 99215

== ENCOUNTER → 2024-12-04 09:55 | Outpatient (BNVA) | payer OTHER, SELFPAY | PROVIDERS: PCP Pediatrics; Visit Provider Anesthesiology ==